=== PATIENT | female | born 1995 | race Caucasian/White ===

== ENCOUNTER 2018-05-11 07:19 | Emergency (ER) | payer OTHER ==
[~2018-05-11] VITALS: Ht 170.2 cm; Wt 63.6 kg
[~2018-05-11 07:19] MED LIST: CEPHALEXIN500 M1 PO; LEVAQUIN 5500 MG/TA1 PO; PROVENTIL0.09 MG/A1 IH; XYAL5 MG PO; [UNRECOGNIZED DRUG - CODE]
[2018-05-11 07:21] VITALS: TEMP 98
[2018-05-11] MEDS ORDERED: BLISOVI 24 FE1 EACH PO (07:33)
[2018-05-11] MEDS ORDERED: TOPAMAX 25MG25 M1 PO (07:33)
[2018-05-11] MEDS ORDERED: WELLBUTRIN 75MG75 MG PO (07:34)
[2018-05-11] MEDS ORDERED: TOPAMAX50 MG PO (07:34)
[2018-05-11] MEDS ORDERED: LEXAPRO 10MG10 MG PO (07:34)
[2018-05-11 09:06] VITALS: BP 113/68; PULSE 90
== END 2018-05-11 09:10 | disposition home or self-care (01) ==
LOC: COL.ER 07:19
DX: G43.909 Migraine, unspecified, not intractable, without status migrainosus (principal)
CPT/HCPCS: J0780; J1100; J1200